=== PATIENT | male | born 1980 | race Caucasian/White ===

== ENCOUNTER 2017-03-24 06:00 | Day surgery (SDC) | payer OTHER ==
[2017-03-24] MEDS ORDERED: ceFAZolin 2 GM/50 ML 0 ML IV ONE (06:29)
[2017-03-24] MEDS ORDERED: ACETAMINOPHEN 1,000 MG/100 ML 100 ML IV ONE (06:30)
[2017-03-24] MEDS ORDERED: CELECOXIB 100 MG CAPSULE PO ONE (06:30)
[2017-03-24 06:45] VITALS: BP 117/79
[2017-03-24] MEDS ORDERED: LACTATED RINGERS 1,000 ML IV ONE (06:59)
== END 2017-03-24 06:01 | disposition home or self-care (01) ==
LOC: SDS 06:00
PROVIDERS: ATTEND Orthopaedic Surgery
DX: Z53.9 Procedure and treatment not carried out, unspecified reason (principal)

== ENCOUNTER 2017-03-30 06:16 | Day surgery (SDC) | payer OTHER ==
[2017-03-30] MEDS ORDERED: ACETAMINOPHEN 1,000 MG/100 ML 100 ML IV ONE (06:27)
[2017-03-30] MEDS ORDERED: CELECOXIB 100 MG CAPSULE PO ONE (06:28)
[2017-03-30] MEDS ORDERED: ceFAZolin 2 GM/50 ML 50 ML IV ONE (06:28)
[2017-03-30] MEDS ORDERED: LACTATED RINGERS 1,000 ML IV ONE ×2 (06:35→13:05)
[2017-03-30] MEDS ORDERED: BUPIVACAINE 0.5% PF 30 ML VIAL SUBQ ONE ×2 (08:37→10:50)
[2017-03-30] MEDS ORDERED: ONDANSETRON 4 MG/2 ML VIAL IVP ONE (08:40)
[2017-03-30] MEDS ORDERED: PROPOFOL 200 MG/20 ML VIAL IVP ONE (08:40)
[2017-03-30] MEDS ORDERED: ROCURONIUM 50 MG/5 ML VIAL IVP ONE (08:40)
[2017-03-30] MEDS ORDERED: ePHEDrine 50 MG/ML AMP IVP ONE (08:40)
[2017-03-30] MEDS ORDERED: MIDAZOLAM 2 MG/2 ML VIAL IVP ONE (08:40)
[2017-03-30] MEDS ORDERED: LIDOCAINE-MPF 2% 5 ML VIAL IM ONE (08:40)
[2017-03-30] MEDS ORDERED: DEXAMETHASONE 4 MG/ML VIAL IVP ONE (08:40)
[2017-03-30] MEDS ORDERED: fentaNYL 100 MCG/2 ML VIAL IVP ONE (08:40)
[2017-03-30] MEDS ORDERED: ROPIVACAINE 0.5% PF 20 ML AMPULE EP ONE (08:40)
[2017-03-30] MEDS ORDERED: EPINEPHrine 1 MG/ML AMP IR ONE (09:05)
[2017-03-30 12:56] VITALS: BP 126/69
--- NOTE | 2017-03-31 08:28 | OPERATIVE REPORT ---
DATE OF SURGERY: 03/30/2017 00:00:00 ID #: [id number]. OPERATIVE SURGEON: Commander Ronaldo Louise,[employer]. PREOPERATIVE DIAGNOSES 1. Right ankle impingement. 2. Right ankle instability with avulsion fracture of the distal fibula. POSTOPERATIVE DIAGNOSES 1. Right ankle impingement. 2. Right ankle instability with avulsion fracture of the distal fibula. OPERATIVE PROCEDURE PERFORMED: Right ankle arthroscopic synovial debridement with open modified Brostrom with Internal Brace fixation. ANESTHESIA PROVIDERS 1. Bel Kay CRNA. 2. Ronaldo Gamble CRNA. ANESTHESIA TECHNIQUE: General endotracheal tube anesthesia with a popliteal nerve block. CIRCULATING NURSES 1. Quentin Thomason RN. 2. Akilah Vallejo. SUPPLY SERVICE WORKER: Ms. Yessy Garrison. START TIME: 0839. END TIME: 1102. INJECTED SUBSTANCES: Includes Marcaine 0.5% plain 8 mL at the Brostrom incision site and medial scope portal. PREOPERATIVE ANTIBIOTICS: Ancef 2 grams. INTRAVENOUS FLUIDS: 1200 mL lactated Ringer's. ESTIMATED BLOOD LOSS: 5 mL. PREOPERATIVE PREP: Hibiclens followed by ChloraPrep applied to exposed operative skin after draping. The patient had left lower extremity DELIA hose and foot pumps in place and functioning prior to induction of anesthesia. TOURNIQUET TIME: 87 mm at 250 mmHg. FINAL COUNTS: Correct. IMPLANTS Included 1. The Arthrex mini anchor biocomposite 2.4 x 8.5 mm anchor. 2. Ligament augmentation repair InternalBrace x1 with FiberTape. COMPLICATIONS: None. INDICATIONS FOR SURGERY: This is a 36-year-old active [facility] [place] [employer] male with chronic right ankle instability that began approximately 3 years ago when he was hiking and had an inversion injury with subsequent pain over the ATFL and distal fibula with chronic instability on sloped and uneven surfaces with clinical exam and imaging studies consistent with a right distal fibular avulsion fracture, nonunion, as well as intraarticular tibiotalar joint pain, questionably due to impingement. The patient had very good relief of the intra-articular pain after tibiotalar joint injection, but persistent instability. He was counseled as far as the findings and options for operative versus nonoperative management, including the risks, benefits, alternatives and expectations to both operative and nonoperative management. Her preferred to have surgery and received command authorization for surgery. On the day of surgery, identified the operative site to be his right lower extremity and ankle. It was initialed by the operative surgeon. He underwent removal of hair with clippers, received a popliteal nerve block, and was then taken back to the operating room, placed in the supine position and underwent general endotracheal tube anesthesia. After adequate anesthetic control, the patient had a tourniquet applied to the right upper thigh. He underwent examination under anesthesia, which revealed a stable talar tilt and a positive anterior drawer. The patient was then placed into lateral decubitus position with the left side down, ensuring that his head, neck, groin and bony prominences were in a safe, well-padded position. He then had his right lower extremity placed into a leg mtz and underwent Hibiclens prep followed by standard sterile draping and a surgical pause to confirm the proper patient, procedure, operative site, position, prophylactic antibiotics, surgical initials , and surgical instrumentation in accordance with universal protocol procedure verification. Following this, ChloraPrep was applied to the exposed operative skin, allowed to dry for 3 minutes. His bony landmarks were outlined with a skin marker. The anteromedial and anterolateral ankle scope portal sites were marked. The anteromedial portal site was identified. Through this site, the tibiotalar joint was insufflated with 10 mL of saline. A small stab incision was then made with bleeding consistent with injury to one of the saphenous vessels. These were isolated and tied off with silk suture. The joint capsule was then penetrated with a small hemostat, and the arthroscope was inserted into the tibiotalar joint without difficulty, where diagnostic arthroscopy began revealing synovitis over the anterolateral gutter. The chondral surface to the talofibular and tibiotalar joints appeared normal, as did the talar dome. There appeared to be some soft tissue impingement over the anterolateral ankle and anterior medial ankle as well. This underwent debridement with a sucker shaver under direct visualization and an intraarticular cautery for hemostasis. The instruments were then removed from the patient's ankle and the fluid was allowed to extravasate out. Attention was then focused at performing a Brostrom repair through a curvilinear incision with Bovie electrocautery for hemostasis. Blunt dissection down to the extensor retinaculum, which was then isolated, both superficially and deep and mobilized. Further dissection down to the capsule revealed the area of nonunion of the avulsion fragment off the distal fibula. The ATFL was well attached to the talus, but not to the fibula. There was a small piece of bone, that was excised. The area of a nonarticulating surface of the talus was identified, and a 3.4 mm drill bit for the Internal Brace was then drilled into the nonarticular service at a 40 degree angle and then tapped. A 4.75 mm Swivel Lock anchor was then placed and tape was then run through the joint capsule. The fibular tunnel was then drilled with the 3.4 mm drill and then tapped with a 3.5 mm tap just proximal to the site where the mini-biocomposite SutureTak was placed. Following this, the ATFL after being excised from the avulsion fragment was identified. The mini-BioComposite SutureTak ankle was then placed into the anterior distal fibula and sutures run through the ATFL. The foot was then placed in dorsiflexion and eversion. The ATFL was then advanced to the fibula without difficulty and tied. Both limbs of the FiberTape coming from the talus was then placed on the Swivel Lock down to the black laser line while ensuring that a curved hemostat was placed under the FiberTape to prevent over tightening. This was then advanced into the fibula with the foot in neutral. The extensor retinaculum was then advanced to the base of the fibula and oversewn with the capsule. The wound was then copiously irrigated. Intraoperative talar anterior drawer was performed revealing a stable ankle. The instruments were then removed from the patient's wound and was copiously irrigated again and closed with 4-0 Vicryl and 3-0 Monocryl. The lateral portal incision site was incorporated into the Brostrom incision. A medial portal site was closed with 4-0 Vicryl and 3-0 nylon. The wounds were then covered with Mastisol, Steri-Strips, Xeroform, sterile plain gauze, sterile Webril, bulky Shah cotton to create a well-padded bulky Shah splint, followed by 10 x 5 x 30 plaster x2 with the foot slightly in eversion. Tourniquet was then deflated. The patient had good capillary refill and warm, pink toes. He was then returned to the supine position, extubated in the operating room, taken to the recovery room in a stable condition where his was met and notified of the intraoperative findings, procedures performed, and postop instructions. Edited and electronically signed: CDR Ronaldo Louise MC, USN [id number] JOB #: [id number] EXT JOB #:[id number] MTDD
== END 2017-03-30 06:17 | disposition home or self-care (01) ==
LOC: SDS 06:16
PROVIDERS: ATTEND Orthopaedic Surgery
PROC: 0SBF4ZZ Excision of Right Ankle Joint, Percutaneous Endoscopic Approach (ICD-10-PCS; principal; 2017-03-30 07:30)
PROC: 0MQQ0ZZ Repair Right Ankle Bursa and Ligament, Open Approach (ICD-10-PCS; 2017-03-30 07:30)
DX: M25.371 Other instability, right ankle (principal); M25.871 Other specified joint disorders, right ankle and foot; S82.831A Other fracture of upper and lower end of right fibula, initial encounter for closed fracture; X50.1XXA Overexertion from prolonged static or awkward postures, initial encounter; Y93.01 Activity, walking, marching and hiking; M65.9 Synovitis and tenosynovitis, unspecified
CPT/HCPCS: 27695; 29897; A9270; C1713; J0131; J0690; J7120

== ENCOUNTER 2017-04-02 20:08 | Emergency (ER) | payer OTHER ==
[2017-04-02] MEDS ORDERED: SODIUM CHLORIDE 0.9% 1,000 ML IV ONE ×2 (20:30)
--- NOTE | 2017-04-02 20:33 | ED Physician Documentation ---
History of Present Illness - Stated complaint Stated Complaint: LETHARGIC - Chief complaint Chief Complaint: General - History obtained from History obtained from: Patient, Family - History of Present Illness Timing: How many days ago (3) Pain level max: 0 Pain level now: 0 Improved by: nothing Worsened by: nothing - Additonal information Additional information: Patient is a 36-year-old male who presents to the emergency department with increasing sleepiness and "lethargy" today. Underwent a ligamentous repair of the right ankle 3 days ago. Taking oxycontin and oxycodone for pain. Review of Systems Constitutional: reports: Fever (100.4) Ears: denies: Ear pain Nose: denies: Rhinorrhea / runny nose, Congestion Throat: denies: Sore throat Cardiac: denies: Chest pain / pressure Respiratory: denies: Cough GI: denies: Nausea, Vomiting, Diarrhea Skin: denies: Rash Musculoskeletal: denies: Neck pain, Back pain Neurologic: reports: Generalized weakness, Headache (frontal 6/10). denies: Focal weakness, Numbness, Syncope, Seizure, Confused, Altered mental status PD PAST MEDICAL HISTORY - Past Medical History Past Medical History: Yes Cardiovascular: Murmur Respiratory: None Endocrine/Autoimmune: None GI: None : None HEENT: None Psych: None Musculoskeletal: None Derm: None - Past Surgical History Past Surgical History: Yes - Present Medications Home Medications: Ambulatory Orders Medication Instructions Recorded Confirmed Celecoxib [Celebrex] 200 mg PO DAILY 04/02/17 04/02/17 Docusate Calcium [Surfak] 240 mg PO DAILY 04/02/17 04/02/17 Ondansetron [Ondansetron Odt] 8 mg PO PRN PRN 04/02/17 04/02/17 Oxycodone HCl/Acetaminophen 1 each PO Q6H 04/02/17 04/02/17 [Percocet 5-325 mg Tablet] oxyCODONE ER [OxyCONTIN] 10 mg PO BID 04/02/17 04/02/17 - Allergies Allergies/Adverse Reactions: Allergies Allergy/AdvReac Type Severity Reaction Status Date / Time No Known Drug Allergies Allergy Verified 03/23/17 14:01 - Social History Does the pt smoke?: No Smoking Status: Never smoker Does the pt drink ETOH?: No Does the pt have substance abuse?: No - Immunizations Immunizations are current?: Yes PD ED PE NORMAL - Vitals Vital signs reviewed: Yes - General General: No acute distress, Well developed/nourished, Other (drowsy, but easily arousable) - HEENT HEENT: PERRL, Ears normal, Moist mucous membranes, Pharynx benign - Neck Neck: Supple, no meningeal sign, No bony TTP, No adenopathy - Cardiac Cardiac: RRR - Respiratory Respiratory: No respiratory distress, Clear bilaterally - Abdomen Abdomen: Soft, Non tender, Non distended - Derm Derm: Warm and dry - Extremities Extremities: Other (RLE in a bulky splint. no visible skin changes.) - Neuro Neuro: Alert and oriented X 3 - Psych Psych: Normal mood, Normal affect Results - Vitals Vitals: Vital Signs - 24 hr 04/02/17 04/02/17 04/02/17 20:16 21:50 21:54 Temperature 38.0 C H 37.5 C Heart Rate 68 72 Respiratory 16 18 Rate Blood Pressure 131/76 H 123/67 O2 Saturation 95 97 04/02/17 22:34 Temperature Heart Rate 75 Respiratory 18 Rate Blood Pressure 125/61 O2 Saturation 94 Oxygen O2 Source Room air - Labs Labs: Laboratory Tests 04/02/17 04/02/17 04/02/17 20:35 20:35 20:35 WBC 7.2 RBC 5.17 Hgb 16.2 Hct 44.9 MCV 86.8 MCH 31.3 H MCHC 36.0 RDW 12.4 Plt Count 239 MPV 7.6 Neut # 5.5 Lymph # 1.2 L [place] # 0.4 Eos # 0.1 Baso # 0.1 Absolute Nucleated RBC 0.00 Nucleated RBCs 0.0 Sodium 135 Potassium 4.6 Chloride 98 L Carbon Dioxide 29 Anion Gap 8.0 BUN 16 Creatinine 1.2 Estimated GFR (MDRD) 69 L Glucose 98 Lactic Acid 1.1 Calcium 9.6 Total Bilirubin 0.8 AST 28 ALT 42 Alkaline Phosphatase 84 Total Protein 7.6 Albumin 4.6 Globulin 3.0 Albumin/Globulin Ratio 1.5 Lipase 23 Urine Color Urine Clarity Urine pH Ur Specific [place] Urine Protein Urine Glucose (UA) Urine Ketones Urine Occult Blood Urine Nitrite Urine Bilirubin Urine Urobilinogen Ur Leukocyte Esterase Ur Microscopic Review Urine Culture Comments 04/02/17 21:30 WBC RBC Hgb Hct MCV MCH MCHC RDW Plt Count MPV Neut # Lymph # [place] # Eos # Baso # Absolute Nucleated RBC Nucleated RBCs Sodium Potassium Chloride Carbon Dioxide Anion Gap BUN Creatinine Estimated GFR (MDRD) Glucose Lactic Acid Calcium Total Bilirubin AST ALT Alkaline Phosphatase Total Protein Albumin Globulin Albumin/Globulin Ratio Lipase Urine Color YELLOW Urine Clarity CLEAR Urine pH 7.0 Ur Specific [place] <=1.005 Urine Protein NEGATIVE Urine Glucose (UA) NEGATIVE Urine Ketones NEGATIVE Urine Occult Blood NEGATIVE Urine Nitrite NEGATIVE Urine Bilirubin NEGATIVE Urine Urobilinogen 0.2 (NORMAL) Ur Leukocyte Esterase NEGATIVE Ur Microscopic Review NOT INDICATED Urine Culture Comments NOT INDICATED PD MEDICAL DECISION MAKING - ED course Complexity details: reviewed results, re-evaluated patient, considered differential, d/w patient, d/w family, d/w end user consultant (Dr. Elder (ortho) [phone] - recommends follow up with PCP.) ED course: Patient is a 36-year-old male who presents to the emergency department 3 days after surgery on the right ankle. states he is more sleepy than usual. He has been using OxyContin and oxycodone at home for pain. He did sleep in the emergency department, but awakens easily, ambulates well with his crutches. Speaks clearly. No evidence of meningitis here. No neck pain or stiffness. Did have a 4 out of 10 headache, but this resolved when he took his own oxycodone. No UTI, no acute findings on chest x-ray. Discussed with orthopedics and they do not recommend taking down his dressing at this time, is comfortable taking him home and they will follow-up closely with his PCP as his orthopedist is out of town this week. They will return here if he worsens. Normal white blood cell count, normal lactate. Blood cultures were drawn. Patient and family counseled regarding signs and symptoms for which I believe and urgent re-evaluation would be necessary. Patient with good understanding of and agreement to plan and is comfortable going home at this time This document was made in part using voice recognition software. While efforts are made to proofread this document, sound alike and grammatical errors may occur. Patient is very well-appearing, nontoxic. Departure - Departure Disposition: 01 Home, Self Care Clinical Impression: Postoperative pain, Intermittent drowsiness Condition: Poor Instructions: ED Post Op Pain Follow-Up: Juarez Fuller MD [Primary Care Provider] - Within 3 Days Comments: Return if Miguel worsens, including worsening headaches, fevers, or not doing well at home. Everything looks normal on labs tonight. Follow up with his doctor on Monday for a recheck. Discharge Date/Time: 04/02/17 22:35
[2017-04-02 20:45] LABS: BASOPHILS # (AUTO) 0.1 10^3/uL (0.0-0.1); BASOPHILS % (AUTO) 1.3 %; EOSINOPHILS # (AUTO) 0.1 10^3/uL (0.0-0.7); EOSINOPHILS % (AUTO) 1.9 %; HCT - HEMATOCRIT 44.9 % (42.0-52.0); HGB - HEMOGLOBIN 16.2 g/dL (14.0-18.0); LYMPHOCYTES # (AUTO) 1.2 10^3/uL (1.5-3.5); LYMPHOCYTES % (AUTO) 16.1 %; MEAN CORPUSCULAR HEMOGLOBIN 31.3 pg (27.0-31.0); MEAN CORPUSCULAR VOLUME 86.8 fL (80.0-94.0); MEAN PLATELET VOLUME 7.6 fL (7.4-11.4); MONOCYTES # (AUTO) 0.4 10^3/uL (0.0-1.0); MONOCYTES % (AUTO) 5.2 %; NEUTROPHILS # (AUTO) 5.5 10^3/uL (1.5-6.6); NEUTROPHILS % (AUTO) 75.5 %; RED BLOOD COUNT 5.17 10^6/uL (4.70-6.10); RED CELL DISTRIBUTION WIDTH 12.4 % (12.0-15.0); UNCORRECTED WHITE BLOOD COUNT 7.2 x10^3/uL; WHITE BLOOD COUNT 7.2 x10^3/uL (4.8-10.8)
[2017-04-02 20:57] LABS: ALBUMIN/GLOBULIN RATIO 1.5 (1.0-2.2); BILIRUBIN,TOTAL 0.8 mg/dL (0.2-1.0); CALCIUM 9.6 mg/dL (8.5-10.3); CREATININE 1.2 mg/dL (0.6-1.2); POTASSIUM 4.6 mmol/L (3.5-5.0); TOTAL PROTEIN 7.6 g/dL (6.7-8.2)
--- NOTE | 2017-04-02 21:09 | XRAY Preliminary Report ---
Exam: XR Chest 1 View IMPRESSION: Normal single view chest. [facility] SITE ID: [id number]
--- NOTE | 2017-04-02 21:12 | XRAY Report ---
EXAM: CHEST RADIOGRAPHY EXAM DATE: 04/02/2017 08:50 PM. CLINICAL HISTORY: Postoperative fever. COMPARISON: None. TECHNIQUE: 1 view. FINDINGS: Lungs/Pleura: No focal opacities evident. No pleural effusion. No pneumothorax. Mediastinum: Within exam limitations, cardiomediastinal contour is normal. Other: None. IMPRESSION: Normal single view chest. [facility] Referring Provider Line: [phone] SITE ID: [id number]
[2017-04-02 21:37] LABS: BILIRUBIN,URINE NEGATIVE (NEGATIVE)
[2017-04-02 21:39] LABS: UA CHARGE (STRIP ONLY) YES; UR CULTURE IF IND NOT INDICATED
[2017-04-02 22:35] VITALS: BP 125/61
== END 2017-04-02 22:35 | disposition home or self-care (01) ==
LOC: ED 20:08
DX: G89.18 Other acute postprocedural pain (principal); R40.0 Somnolence
CPT/HCPCS: 36415; 71010; 80053; 81001; 81003; 83605; 83690; 85025; 87040; 87086; 99283; 99284